=== PATIENT | male | born 1970 | race Caucasian/White ===

== ENCOUNTER 2018-04-01 22:45 | Inpatient (IN) ==
[2018-04-02 00:14] LABS: Influenza A virus by PCR Neg for Influ A (Neg); Influenza B virus by PCR Neg for Influ B (Neg)
[2018-04-02 00:45] LABS: Hematocrit (blood only) 9.6 % (42-52); Hemoglobin 2.4 g/dL (14.0-18.0); Mean Corpuscular Volume 66.2 fL (80-100); Nucleated RBC # (auto) 0.03 K/uL (0-0); Nucleated RBC % (auto) 0.7 %; Platelet Count 196 K/uL (130-400); Red Blood Count 1.45 M/uL (4.7-6.1); White Blood Count 4.89 K/uL (4.8-10.8)
[2018-04-02 00:50] LABS: INR 1.2 (0.9-1.1); Partial Thromboplastin Ratio 0.8; Partial Thromboplastin Time 20.5 Seconds (21.0-31.0); Prothrombin Time 11.6 Seconds (9.0-12.0)
[2018-04-02 00:58] LABS: Alanine Aminotransferase 18 U/L (12-78); Albumin Level 2.9 gm/dl (3.4-5.0); Aspartate Aminotransferase 11 U/L (15-37); BUN Creatinine Ratio 17.2 (10-20); Bilirubin Direct < 0.1 mg/dl (0-0.2); Blood Urea Nitrogen 18 mg/dl (7-18); Carbon Dioxide 22 mmol/L (21-32); Chloride 107 mmol/L (98-107); Creatinine Clr Calc Pharmacy 111.6 ml/min; Est GFR (African American) 97.3; Est GFR (Non-African American) 83.9; Glucose 96 mg/dl (70-99); Potassium 4.1 mmol/L (3.5-5.1); Sodium 139 mmol/L (136-145)
[2018-04-02 01:03] LABS: Alkaline Phosphatase 63 U/L (45-117); Bilirubin,Total 0.3 mg/dl (0.2-1); Mean Platelet Volume 8.6 fL (7.4-10.4); NT Pro B Type Natriuretic Pept 317 pg/ml (0-450); Total Protein 5.7 gm/dl (6.4-8.2); Troponin I 0.021 ng/ml (0-0.045)
[2018-04-02 01:04] LABS: RDW Coefficient of Variation 19.8 % (11.5-14.5); RDW Standard Deviation 47.5 fL (36.4-46.3)
[2018-04-02 01:09] LABS: Basophils # (auto) 0.03 K/uL (0-0.2); Basophils % (auto) 0.6 %; Eosinophils # (auto) 0.07 K/uL (0-0.5); Eosinophils % (auto) 1.4 %; Hypochromasia Present; Lymphocytes # (auto) 1.35 K/uL (1.2-3.4); Lymphocytes % (auto) 27.6 %; Microcytosis Present; Monocytes # (auto) 0.58 K/uL (0.11-0.59); Monocytes % (auto) 11.9 %; Neutrophils # (auto) 2.86 K/uL (1.4-6.5); Neutrophils % (auto) 58.5 %; Polychromasia 1+; Schistocytes 1+; Tear Drop Cells Occasional
[2018-04-02 01:54] LABS: Reticulocyte % 4.2 % (0.5-2.0); Reticulocytes # 0.06 10^6/uL (0.02-0.10)
[2018-04-02 01:56] LABS: Ferritin 1.2 ng/ml (8-388); Iron 11 mcg/dl (35-175); Transferrin 344 mg/dl (200-360); Transferrin Percent Saturation 2 % (20-50)
[2018-04-02 06:32] LABS: Hematocrit (blood only) 13.9 % (42-52); Mean Corpuscular Hgb Conc 28.8 g/dL (32-36); Mean Platelet Volume 8.4 fL (7.4-10.4); Nucleated RBC # (auto) 0.03 K/uL (0-0); Nucleated RBC % (auto) 0.7 %; Platelet Count 187 K/uL (130-400); RDW Coefficient of Variation 22.8 % (11.5-14.5); Red Blood Count 1.93 M/uL (4.7-6.1); White Blood Count 4.14 K/uL (4.8-10.8)
[2018-04-02 06:50] LABS: Albumin Level 2.9 gm/dl (3.4-5.0); BUN Creatinine Ratio 16.6 (10-20); Creatinine Clr Calc Pharmacy 119.3 ml/min; Est GFR (African American) 105.8; Est GFR (Non-African American) 91.3; Magnesium 1.9 mg/dl (1.8-2.4); Potassium 4.3 mmol/L (3.5-5.1)
[2018-04-02 06:53] LABS: Bilirubin,Total 0.7 mg/dl (0.2-1); Phosphorus 3.7 mg/dl (2.5-4.9); Total Protein 5.7 gm/dl (6.4-8.2)
[2018-04-02 06:55] LABS: Anisocytosis Present; Basophils # (auto) 0.02 K/uL (0-0.2); Basophils % (auto) 0.5 %; Eosinophils # (auto) 0.09 K/uL (0-0.5); Eosinophils % (auto) 2.2 %; Hypochromasia Present; Immature Granulocytes # (auto) 0.01 K/uL (0.00-0.02); Immature Granulocytes % (auto) 0.2 %; Lymphocytes # (auto) 1.57 K/uL (1.2-3.4); Lymphocytes % (auto) 37.9 %; Microcytosis Present; Monocytes # (auto) 0.46 K/uL (0.11-0.59); Monocytes % (auto) 11.1 %; Neutrophils # (auto) 1.99 K/uL (1.4-6.5); Neutrophils % (auto) 48.1 %; Polychromasia 1+; Schistocytes Occasional; Tear Drop Cells Occasional
[2018-04-02 07:39] LABS: Bilirubin Direct 0.2 mg/dl (0-0.2)
[2018-04-02 10:08] LABS: iSTAT Blood Urea Nitrogen 18 mg/dl (7-18); iSTAT Carbon Dioxide 23 mEq/l (24-31); iSTAT Glucose 97 mg/dl (70-99); iSTAT Ionized Calcium 1.19 mmol/l (1.12-1.32)
[2018-04-02 11:00] LABS: Appearance Urine Clear (Clear); Bilirubin Urine Negative (Negative); Color Urine Yellow; Glucose Urine UA Negative (Negative); Ketones Urine Negative (Negative); Leukocyte Esterase Urine Negative (Negative); Nitrite Urine Negative (Negative); Protein Urine Negative (Negative); Specific Gravity Urine 1.016 (1.000-1.030); Urobilinogen Urine Negative (Negative); pH Urine 5.5 (4.5-7.5)
[2018-04-02 16:21] LABS: Hemoglobin 7.5 g/dL (14.0-18.0)
[2018-04-03 06:13] LABS: Basophils # (auto) 0.02 K/uL (0-0.2); Basophils % (auto) 0.4 %; Eosinophils # (auto) 0.15 K/uL (0-0.5); Eosinophils % (auto) 2.7 %; Hematocrit (blood only) 22.5 % (42-52); Immature Granulocytes # (auto) 0.03 K/uL (0.00-0.02); Immature Granulocytes % (auto) 0.5 %; Lymphocytes # (auto) 1.42 K/uL (1.2-3.4); Lymphocytes % (auto) 25.1 %; Mean Corpuscular Hgb Conc 31.1 g/dL (32-36); Mean Corpuscular Volume 76.8 fL (80-100); Mean Platelet Volume 8.6 fL (7.4-10.4); Monocytes # (auto) 0.68 K/uL (0.11-0.59); Neutrophils # (auto) 3.36 K/uL (1.4-6.5); Neutrophils % (auto) 59.3 %; Nucleated RBC # (auto) 0.02 K/uL (0-0); Nucleated RBC % (auto) 0.4 %; Platelet Count 154 K/uL (130-400); RDW Coefficient of Variation 21.8 % (11.5-14.5); RDW Standard Deviation 61.5 fL (36.4-46.3); Red Blood Count 2.93 M/uL (4.7-6.1); White Blood Count 5.66 K/uL (4.8-10.8)
[2018-04-03 06:51] LABS: Albumin Level 2.8 gm/dl (3.4-5.0); BUN Creatinine Ratio 15.5 (10-20); Calcium 7.7 mg/dl (8.5-10.1); Creatinine Clr Calc Pharmacy 145.2 ml/min; Est GFR (African American) 121.6; Est GFR (Non-African American) 104.9; Potassium 3.9 mmol/L (3.5-5.1)
[2018-04-03 06:54] LABS: Bilirubin Direct 0.2 mg/dl (0-0.2); Bilirubin,Total 0.8 mg/dl (0.2-1); Total Protein 5.5 gm/dl (6.4-8.2)
[2018-04-03 07:36] LABS: Anisocytosis Present; Microcytosis Present
== END 2018-04-03 14:00 | disposition home or self-care (01) ==
LOC: ED 22:45 → 1E 04-02 01:45 → SUATTDRO 04-02 01:45 → 1E 04-02 03:43 → 2N 04-02 16:58